=== PATIENT | female | born 1990 | race Caucasian/White ===

== ENCOUNTER 2019-01-13 17:55 | Emergency (ER) | payer SELFPAY ==
[2019-01-13 17:56] VITALS: BP 113/68; PULSE 94; RESP 16; TEMP 36.6; O2SAT 100; BMI 23.1
[2019-01-13 20:09] VITALS: BP 111/72; PULSE 96; RESP 16; O2SAT 98
--- NOTE | 2019-01-13 20:20 | RAD_ITS ---
STUDY: X-RAY - PELVIS AND RIGHT HIP REASON FOR EXAM: Female, 28 years old. Pain to right lower back and hip. TECHNIQUE: 3 views of the pelvis and hip. COMPARISON: None. FINDINGS: There is a non-specific bowel gas pattern. Normal visualized soft tissue structures. Normal bilateral iliac wings, sacroiliac joints and visualized sacrum. Normal bilateral superior and inferior pubic rami. Normal pubic symphysis. Normal bilateral ischial tuberosities. Normal visualized femoral head. Normal acetabulum. Normal hip joint. RAD/HIP, UNI W/ Pelvis 2-3 Views IMPRESSION: Within normal limits x-ray examination of the pelvis and hip. Electronically Signed: Yuli Grace MD at 21:01 EDT Tel , Service support ,
[2019-01-13] MEDS: HYDROcodone Bitartrate/Apap 5/325 Tablet PO (20:29)
[2019-01-13] MEDS: Naproxen 500 MG Tablet PO (20:29)
[2019-01-13] MEDS: predniSONE 20 MG Tablet 40 MG PO (20:29)
--- NOTE | 2019-01-13 21:59 | ED.DCSUM_ITS ---
History of Present Illness Chief Complaint: Lower Extremity Injury Detail of Chief Complaint: Right hip and thigh pain Informant: Patient Onset: Weeks - 1 week Context: Gradual Onset Current Severity: Moderate Maximum Severity: Moderate Narrative: Patient presents with pain to the posterior right hip and lateral thigh for the past 1 week. She states she first noted it after she started taking amitriptyline for migraines. She was seen at her PCPs office yesterday and was told it was not secondary to her amitriptyline. She states they watched her walk yesterday and told her her right SI joint was out of place. After some manipulation she felt better, but pain worsened again last night. She now has difficulty walking secondary to pain. She denies any fall or injury initially. She does not have a history of back problems. She does not have paresthesias or weakness. Past Medical History - Allergies and Home Meds Allergies/Adverse Reactions: Allergies Penicillins [PCN] Allergy (Verified 08/26/13 10:58) Nausea topiramate [From Topamax] Allergy (Verified 01/13/19 17:56) Other MENTAL REACTION Primary Care Physician: Luis Armando Herrmann MD [Primary Care Provider] - 1 Week if not improving Prior records reviewed: Yes Past Medical History: - - Reviewed Lives: Spouse/ Significant Other Smoking Status: Never smoker Review of Systems General: Denies: Chills, Fever Eyes: Denies: Visual changes - bilaterally ENT: Denies: Bilateral ear pain Cardiovascular: Denies: Chest pain Respiratory: Denies: Dyspnea, Cough Gastrointestinal: Denies: Abdominal pain, Nausea, Vomiting, Diarrhea Genitourinary: Denies: Dysuria Musculoskeletal: Reports: Extremity Pain Skin: Denies: Rash Neurological: Denies: Headache Allergy: Denies: Uticaria Physical Exam Vital Signs/Narrative: Vital Signs Pulse Resp BP Pulse Ox 01/13/19 20:09 96 16 111/72 98 Inital Vital Signs reviewed: Yes General: Well nourished, Well developed Head: Normocephalic ENT: Moist mucous membranes Neck: Supple Cardiovascular: Regular rate, Regular rhythm Respiratory: No distress, CTA bilaterally Abdomen: Soft, Nontender, Normal bowel sounds Back: - - Mild tenderness over the right SI joint and sciatic notch. Extremities: Tenderness - Mild tenderness of the greater trochanter of the right hip. Minimal pain with logroll. Good range of motion at the hip. Skin: Normal color Neurological: Alert, Oriented x3, Normal Strength, Normal Sensation Psychological: Normal affect Diagnostic/Tx/Re-eval Impressions Hip/Pelvis X-Ray 01/13/19 20:20 IMPRESSION: Within normal limits x-ray examination of the pelvis and hip. Electronically Signed: Yuli Grace MD at 21:01 EDT Tel , Service support , 01/13/19 20:20 HIP, UNI W/ Pelvis 2-3 Views [RAD] Stat - Medical Decision Making Patient was given [place], prednisone, and Flexeril here to treat sciatica. On repeat evaluation she feels feeling slightly improved. She will be given crutches may weight-bear as tolerated. She is given prescriptions for the above medication with the addition of naproxen. She will follow with her primary care physician. ED Disposition - Plan for ED Patient: Disposition: Home or Assisted Living Diagnosis: Sciatica Instructions: BACK PAIN w/ SCIATICA Prescriptions: cycloBENZAPRine HCl [Flexeril] 10 mg PO TID PRN #20 tab PRN Reason: Muscle Spasm Prescription Printed Naproxen [Naprosyn] 500 mg PO BID PRN PRN #20 tab PRN Reason: Pain Score 1-10/10 Prescription Printed Hydrocodone Bitart/Apap 5-325 [[place] 5MG-325MG] 1 tab PO Q6H PRN PRN 3 Days #10 tab PRN Reason: Pain Prescription Printed Prednisone 10 mg PO UD #33 tab Prescription Printed Referrals: Luis Armando Herrmann MD [Primary Care Provider] - 1 Week if not improving
[2019-01-13 22:27] VITALS: BP 112/80; PULSE 89; RESP 16; O2SAT 97
== END 2019-01-13 22:28 | disposition home or self-care (01) ==
PROVIDERS: Emergency Provider Emergency Medicine; Family Provider Family Medicine; PCP Family Medicine
DX: M54.30 Sciatica, unspecified side (principal); Z88.0 Allergy status to penicillin; G43.909 Migraine, unspecified, not intractable, without status migrainosus
CPT/HCPCS: 73502; 99284